=== PATIENT | female | born 1950 | race African-American/Black ===

== ENCOUNTER → 2017-07-20 | Outpatient (CLI) | payer OTHER | END | disposition home or self-care (01) | LOC: LAB 08:42 | DX: E78.2 Mixed hyperlipidemia (principal); D64.89 Other specified anemias; D68.8 Other specified coagulation defects ==

== ENCOUNTER 2017-09-28 11:49 | Outpatient (CLI) | payer OTHER ==
[~2017-09-28] VITALS: Ht 152.4 cm; Wt 52.2 kg
== END 2017-09-28 12:10 | disposition home or self-care (01) ==
LOC: OFIC 805 11:49
DX: H60.8X1 Other otitis externa, right ear (principal); H61.23 Impacted cerumen, bilateral; H93.11 Tinnitus, right ear

== ENCOUNTER 2018-02-12 13:35 | Outpatient (CLI) | payer OTHER | END 2018-02-12 13:52 | disposition home or self-care (01) | LOC: NUCLEAR 13:35 | DX: M81.0 Age-related osteoporosis without current pathological fracture (principal) ==

== ENCOUNTER 2018-02-15 08:48 | Outpatient (CLI) | payer OTHER | END 2018-02-15 09:00 | disposition home or self-care (01) | LOC: LAB 08:48 | DX: E55.9 Vitamin D deficiency, unspecified (principal); D68.8 Other specified coagulation defects; E11.65 Type 2 diabetes mellitus with hyperglycemia; D64.1 Secondary sideroblastic anemia due to disease; E03.8 Other specified hypothyroidism; E78.2 Mixed hyperlipidemia; N39.0 Urinary tract infection, site not specified ==

== ENCOUNTER 2018-06-02 07:50 | Outpatient (CLI) | payer OTHER | END 2018-06-02 07:56 | disposition home or self-care (01) | LOC: MAMO-SONO 07:50 | DX: Z12.31 Encounter for screening mammogram for malignant neoplasm of breast (principal); Z87.898 Personal history of other specified conditions; N64.89 Other specified disorders of breast ==

== ENCOUNTER 2018-06-02 09:17 | Outpatient (CLI) | payer OTHER | END 2018-06-02 09:28 | disposition home or self-care (01) | LOC: LAB 09:17 | DX: E11.65 Type 2 diabetes mellitus with hyperglycemia (principal); N39.0 Urinary tract infection, site not specified; Z12.11 Encounter for screening for malignant neoplasm of colon; D68.8 Other specified coagulation defects; D64.89 Other specified anemias; E03.8 Other specified hypothyroidism ==

== ENCOUNTER 2018-08-23 08:44 | Outpatient (CLI) | payer OTHER | END 2018-08-23 11:30 | disposition home or self-care (01) | LOC: LAB 08:44 | DX: E11.65 Type 2 diabetes mellitus with hyperglycemia (principal); E78.2 Mixed hyperlipidemia; D68.8 Other specified coagulation defects; D64.89 Other specified anemias; N39.0 Urinary tract infection, site not specified; E72.11 Homocystinuria ==

== ENCOUNTER 2018-08-24 08:41 | Outpatient (CLI) | payer OTHER | END 2018-08-24 08:59 | disposition home or self-care (01) | LOC: LAB 08:41 | DX: E11.65 Type 2 diabetes mellitus with hyperglycemia (principal); E78.2 Mixed hyperlipidemia; D68.8 Other specified coagulation defects; D64.89 Other specified anemias; N39.0 Urinary tract infection, site not specified; E72.11 Homocystinuria ==

== ENCOUNTER 2018-11-26 08:01 | Outpatient (CLI) | payer OTHER | END 2018-11-26 08:09 | disposition home or self-care (01) | LOC: LAB 08:01 | DX: E03.8 Other specified hypothyroidism (principal); E11.65 Type 2 diabetes mellitus with hyperglycemia; D64.89 Other specified anemias ==

== ENCOUNTER 2019-03-29 08:50 | Outpatient (CLI) | payer OTHER | END 2019-03-29 15:00 | disposition home or self-care (01) | LOC: LAB 08:50 | DX: D64.89 Other specified anemias (principal); E55.9 Vitamin D deficiency, unspecified; E11.65 Type 2 diabetes mellitus with hyperglycemia; N39.0 Urinary tract infection, site not specified; D68.8 Other specified coagulation defects; E03.8 Other specified hypothyroidism ==

== ENCOUNTER 2019-06-27 09:10 | Outpatient (CLI) | payer OTHER | END 2019-06-27 14:58 | disposition home or self-care (01) | LOC: MAMO-SONO 09:10 | DX: Z12.31 Encounter for screening mammogram for malignant neoplasm of breast (principal); Z87.898 Personal history of other specified conditions ==

== ENCOUNTER 2019-07-04 08:21 | Outpatient (CLI) | payer OTHER | END 2019-07-04 13:12 | disposition home or self-care (01) | LOC: LAB 08:21 | DX: E11.65 Type 2 diabetes mellitus with hyperglycemia (principal); D64.89 Other specified anemias; E78.2 Mixed hyperlipidemia; Z12.11 Encounter for screening for malignant neoplasm of colon; E03.8 Other specified hypothyroidism ==

== ENCOUNTER 2020-01-04 08:51 | Outpatient (CLI) | payer OTHER | END 2020-01-04 08:57 | disposition home or self-care (01) | LOC: LAB 08:51 | PROVIDERS: ATTEND Specialist | DX: E11.65 Type 2 diabetes mellitus with hyperglycemia (principal); E03.8 Other specified hypothyroidism; E78.2 Mixed hyperlipidemia; D64.89 Other specified anemias ==

== ENCOUNTER → 2020-03-06 08:26 | Outpatient (CLI) | payer OTHER | END | disposition home or self-care (01) | LOC: LAB 08:26 | PROVIDERS: ATTEND Internal Medicine Hematology & Oncology | DX: D50.8 Other iron deficiency anemias (principal); I10 Essential (primary) hypertension; D51.1 Vitamin B12 deficiency anemia due to selective vitamin B12 malabsorption with proteinuria; D51.0 Vitamin B12 deficiency anemia due to intrinsic factor deficiency; B20 Human immunodeficiency virus [HIV] disease; B17.8 Other specified acute viral hepatitis; Z11.59 Encounter for screening for other viral diseases; E06.3 Autoimmune thyroiditis; D72.818 Other decreased white blood cell count; D68.8 Other specified coagulation defects; Z01.812 Encounter for preprocedural laboratory examination; Z13.6 Encounter for screening for cardiovascular disorders; E78.00 Pure hypercholesterolemia, unspecified ==

== ENCOUNTER 2020-03-07 15:07 | Outpatient (CLI) | payer OTHER | END 2020-03-07 15:19 | disposition home or self-care (01) | LOC: SONOGRAMA 15:07 | PROVIDERS: ATTEND Internal Medicine Hematology & Oncology | DX: E06.0 Acute thyroiditis (principal); E03.8 Other specified hypothyroidism; D72.818 Other decreased white blood cell count; E04.2 Nontoxic multinodular goiter ==

== ENCOUNTER → 2020-04-09 08:30 | Outpatient (CLI) | payer OTHER | END | disposition home or self-care (01) | LOC: LAB 08:30 | PROVIDERS: ATTEND Specialist | DX: B20 Human immunodeficiency virus [HIV] disease (principal) ==

== ENCOUNTER 2020-06-12 09:36 | Outpatient (CLI) | payer OTHER | END 2020-06-12 09:47 | disposition home or self-care (01) | LOC: MRI 09:36 | PROVIDERS: ATTEND Neuromusculoskeletal Medicine & OMM | DX: G93.89 Other specified disorders of brain (principal); R41.3 Other amnesia | CPT/HCPCS: 70553; A9575 ==

== ENCOUNTER 2020-06-15 08:55 | Outpatient (CLI) | payer OTHER | END 2020-06-15 09:11 | disposition home or self-care (01) | LOC: LAB 08:55 | PROVIDERS: ATTEND Neuromusculoskeletal Medicine & OMM | DX: R41.89 Other symptoms and signs involving cognitive functions and awareness (principal); R41.3 Other amnesia; E03.8 Other specified hypothyroidism; F03.90 Unspecified dementia, unspecified severity, without behavioral disturbance, psychotic disturbance, mood disturbance, and anxiety; E78.1 Pure hyperglyceridemia; E78.00 Pure hypercholesterolemia, unspecified ==

== ENCOUNTER 2020-12-13 08:09 | Outpatient (CLI) | payer OTHER | END 2020-12-13 08:17 | disposition home or self-care (01) | LOC: MAMO-SONO 08:09 | PROVIDERS: ATTEND General Practice | DX: N64.59 Other signs and symptoms in breast (principal); Z87.898 Personal history of other specified conditions; Z12.31 Encounter for screening mammogram for malignant neoplasm of breast ==

== ENCOUNTER → 2020-12-13 09:45 | Outpatient (CLI) | payer OTHER | END | disposition home or self-care (01) | LOC: LAB 09:45 | PROVIDERS: ATTEND Specialist | DX: E11.21 Type 2 diabetes mellitus with diabetic nephropathy (principal) ==

== ENCOUNTER 2021-05-27 08:12 | Outpatient (CLI) | payer OTHER | END 2021-05-27 08:13 | disposition home or self-care (01) | LOC: LAB 08:12 | PROVIDERS: ATTEND Specialist | DX: E11.65 Type 2 diabetes mellitus with hyperglycemia (principal); K75.81 Nonalcoholic steatohepatitis (NASH); D64.89 Other specified anemias; D68.8 Other specified coagulation defects; J45.998 Other asthma ==

== ENCOUNTER 2021-09-02 13:03 | Outpatient (CLI) | payer OTHER | END 2021-09-02 13:04 | disposition home or self-care (01) | LOC: NUCLEAR 13:03 | PROVIDERS: ATTEND Specialist | DX: M81.0 Age-related osteoporosis without current pathological fracture (principal) ==

== ENCOUNTER 2021-11-27 08:37 | Outpatient (CLI) | payer OTHER | END 2021-11-27 08:54 | disposition home or self-care (01) | LOC: LAB 08:37 | PROVIDERS: ATTEND Specialist | DX: E11.21 Type 2 diabetes mellitus with diabetic nephropathy (principal); E78.2 Mixed hyperlipidemia; Z12.11 Encounter for screening for malignant neoplasm of colon; D64.9 Anemia, unspecified; K75.81 Nonalcoholic steatohepatitis (NASH); M77.8 Other enthesopathies, not elsewhere classified ==

== ENCOUNTER 2022-03-11 08:46 | Outpatient (CLI) | payer OTHER | END 2022-03-11 08:47 | disposition home or self-care (01) | LOC: LAB 08:46 | PROVIDERS: ATTEND Specialist | DX: E03.8 Other specified hypothyroidism (principal); M00.80 Arthritis due to other bacteria, unspecified joint; R07.89 Other chest pain; E11.21 Type 2 diabetes mellitus with diabetic nephropathy; E11.69 Type 2 diabetes mellitus with other specified complication; R19.5 Other fecal abnormalities; N39.9 Disorder of urinary system, unspecified; D64.89 Other specified anemias ==

== ENCOUNTER 2022-06-05 08:26 | Outpatient (CLI) | payer OTHER | END 2022-06-05 08:30 | disposition home or self-care (01) | LOC: LAB 08:26 | PROVIDERS: ATTEND Specialist | DX: M00.80 Arthritis due to other bacteria, unspecified joint (principal); E03.8 Other specified hypothyroidism; Z13.220 Encounter for screening for lipoid disorders; E11.21 Type 2 diabetes mellitus with diabetic nephropathy; D64.89 Other specified anemias; N39.9 Disorder of urinary system, unspecified; E11.69 Type 2 diabetes mellitus with other specified complication ==

== ENCOUNTER 2022-06-05 09:19 | Outpatient (CLI) | payer OTHER | END 2022-06-05 09:26 | disposition home or self-care (01) | LOC: TOM 09:19 | PROVIDERS: ATTEND Specialist | DX: I67.2 Cerebral atherosclerosis (principal); Z86.73 Personal history of transient ischemic attack (TIA), and cerebral infarction without residual deficits ==

== ENCOUNTER 2022-09-02 10:34 | Outpatient (CLI) | payer OTHER | END 2022-09-02 10:44 | disposition home or self-care (01) | LOC: LAB 10:34 | PROVIDERS: ATTEND Specialist | DX: E03.8 Other specified hypothyroidism (principal); D64.89 Other specified anemias; E11.21 Type 2 diabetes mellitus with diabetic nephropathy; Z13.220 Encounter for screening for lipoid disorders; N39.9 Disorder of urinary system, unspecified; E11.69 Type 2 diabetes mellitus with other specified complication ==

== ENCOUNTER → 2022-09-02 | Outpatient (CLI) | payer OTHER | END | disposition home or self-care (01) | LOC: MAMO-SONO 08:16 | PROVIDERS: ATTEND Specialist | DX: Z12.39 Encounter for other screening for malignant neoplasm of breast (principal); N60.39 Fibrosclerosis of unspecified breast ==

== ENCOUNTER 2022-10-15 08:39 | Outpatient (CLI) | payer OTHER | END 2022-10-15 08:40 | disposition home or self-care (01) | LOC: LAB 08:39 | PROVIDERS: ATTEND Specialist | DX: D68.59 Other primary thrombophilia (principal); E72.12 Methylenetetrahydrofolate reductase deficiency; Z15.89 Genetic susceptibility to other disease; E72.11 Homocystinuria; I82.90 Acute embolism and thrombosis of unspecified vein ==

== ENCOUNTER 2022-10-16 07:56 | Outpatient (CLI) | payer OTHER | END 2022-10-16 08:12 | disposition home or self-care (01) | LOC: MRI 07:56 | PROVIDERS: ATTEND Specialist | DX: I63.239 Cerebral infarction due to unspecified occlusion or stenosis of unspecified carotid artery (principal); H34.239 Retinal artery branch occlusion, unspecified eye | CPT/HCPCS: 70553; Q9965 ==

== ENCOUNTER 2022-10-30 08:45 | Outpatient (CLI) | payer OTHER | END 2022-10-30 08:46 | disposition home or self-care (01) | LOC: NUCLEAR 08:45 | PROVIDERS: ATTEND Specialist | DX: I65.29 Occlusion and stenosis of unspecified carotid artery (principal) ==

== ENCOUNTER 2022-12-01 08:28 | Outpatient (CLI) | payer OTHER | END 2022-12-01 08:29 | disposition home or self-care (01) | LOC: LAB 08:28 | PROVIDERS: ATTEND Specialist | DX: N39.9 Disorder of urinary system, unspecified (principal); M00.80 Arthritis due to other bacteria, unspecified joint; D64.89 Other specified anemias; R19.5 Other fecal abnormalities; Z13.220 Encounter for screening for lipoid disorders; E11.21 Type 2 diabetes mellitus with diabetic nephropathy; E11.69 Type 2 diabetes mellitus with other specified complication ==

== ENCOUNTER → 2023-03-02 09:56 | Outpatient (CLI) | payer OTHER ==
[2023-03-02 10:45] LABS: HEMATOCRIT 41.1 % (36.0-45.00); HEMOGLOBIN 13.3 g/dL (12.0-15.00); MEAN CORPUSCULAR HEMOGLOBIN 27.6 pg (27.00-32.0); MEAN CORPUSCULAR HGB CONC 32.4 g/dl (32.0-36.0); PLATELET COUNT 239 K/uL (150-450); RED BLOOD COUNT 4.83 M/uL (4.00-6.00); RED CELL DISTRIBUTION WIDTH 14.4 % (11.5-14.5)
[2023-03-02 10:47] LABS: PH,URINE 5.5 (5.0-8.0); URINE APPEARANCE Clear; URINE BILIRRUBIN Negative (NEGATIVE); URINE BLOOD Negative; URINE COLOR Yellow; URINE GLUCOSE Negative (NEGATIVE); URINE LEUKOCYTE Negative; URINE NITRATE Negative; URINE PROTEIN Negative (NEGATIVE); URINE UROBILINOGEN 0.2 E.U./dl
[2023-03-02 10:52] LABS: URINE EPITHELIAL CELLS 1.5 uL (0.0-38.8); URINE RBC 5.3 uL (0.0-20.8)
[2023-03-02 11:07] LABS: URINE WBC 1.6 uL (0.0-23.2)
[2023-03-02 11:32] LABS: ALBUMIN 3.6 gm/dL (3.4-5.0); ALKALINE PHOSPHATASE 67 U/L (50-136); ALT/SGPT 33 U/L (12-78); ANION GAP 6 (10.0-20.0); AST/SGOT 24 U/L (15-37); BILIRUBIN TOTAL 0.95 mg/dL (0.3-1.2); BLOOD UREA NITROGEN 12 mg/dL (7-18); BUN CREA RATIO 21 (7.0-25.0); CALCIUM 8.9 mg/dL (8.5-10.1); CARBON DIOXIDE 30 mEq/L (21-32); CHLORIDE 109 mmol/L (98-107); CHOL HDL RATIO 2.4 (0-5.0); CHOLESTEROL 158 mg/dL (0-200); CREATININE SERUM 0.57 mg/dL (0.55-1.02); GFR 104.86; GLOBULINA 3.2 G/DL (2.4-3.5); GLUCOSE FASTING 77 mg/dL (65-100); HDL 65 mg/dl (40-60); LDL 77 mg/dl (0-130); OSMOLALITY SERUM 280 MOSM/KG (275-295); POTASSIUM 4.03 mEq/L (3.5-5.1); SODIUM 141 mmol/L (136-145); TOTAL PROTEIN 6.8 gm/dL (6.4-8.2); TRIGLYCERIDES 78 mg/dL (0-150); TSH 0.812 uIU/mL (0.358-3.74); VLDL 15 (0-39)
[2023-03-02 11:33] LABS: C-REACTIVE PROTEIN < 0.29 MG/DL (0.00-0.29)
== END | disposition home or self-care (01) ==
LOC: LAB 09:56
PROVIDERS: ATTEND Specialist
DX: E11.21 Type 2 diabetes mellitus with diabetic nephropathy (principal); E03.8 Other specified hypothyroidism; E11.69 Type 2 diabetes mellitus with other specified complication; N39.9 Disorder of urinary system, unspecified; Z13.220 Encounter for screening for lipoid disorders; D64.89 Other specified anemias; M00.80 Arthritis due to other bacteria, unspecified joint

== ENCOUNTER 2023-06-09 09:05 | Outpatient (CLI) | payer OTHER ==
[2023-06-09 10:01] LABS: HEMOGLOBIN 12.5 g/dL (12.0-15.00); MEAN CORPUSCULAR HEMOGLOBIN 27.3 pg (27.00-32.0); MEAN CORPUSCULAR HGB CONC 32.9 g/dl (32.0-36.0); PLATELET COUNT 279 K/uL (150-450); RED BLOOD COUNT 4.58 M/uL (4.00-6.00); RED CELL DISTRIBUTION WIDTH 14.9 % (11.5-14.5)
[2023-06-09 10:01] LABS: PH,URINE 7.5 (5.0-8.0); URINE APPEARANCE Turbid; URINE BILIRRUBIN Negative (NEGATIVE); URINE BLOOD Negative; URINE COLOR Yellow; URINE GLUCOSE Negative (NEGATIVE); URINE LEUKOCYTE Negative; URINE NITRATE Negative; URINE PROTEIN Negative (NEGATIVE); URINE UROBILINOGEN 0.2 E.U./dl
[2023-06-09 10:06] LABS: URINE BACTERIA 28.9 uL (0.0-1933); URINE RBC 2.4 uL (0.0-20.8)
[2023-06-09 10:15] LABS: URINE EPITHELIAL CELLS 1.3 uL (0.0-38.8); URINE WBC 1.6 uL (0.0-23.2)
[2023-06-09 10:34] LABS: ALBUMIN 3.5 gm/dL (3.4-5.0); ALKALINE PHOSPHATASE 59 U/L (50-136); ALT/SGPT 28 U/L (12-78); ANION GAP 8 (10.0-20.0); AST/SGOT 19 U/L (15-37); BILIRUBIN TOTAL 1.25 mg/dL (0.3-1.2); BLOOD UREA NITROGEN 12 mg/dL (7-18); BUN CREA RATIO 21 (7.0-25.0); CALCIUM 9.1 mg/dL (8.5-10.1); CARBON DIOXIDE 29 mEq/L (21-32); CHLORIDE 108 mmol/L (98-107); CHOL HDL RATIO 2.6 (0-5.0); CHOLESTEROL 151 mg/dL (0-200); CREATININE SERUM 0.57 mg/dL (0.55-1.02); FREE TRIODOTIRONINE 2.41 pg/ml (2.18-3.98); GFR 104.56; GLOBULINA 3.1 G/DL (2.4-3.5); GLUCOSE FASTING 83 mg/dL (65-100); HDL 59 mg/dl (40-60); LDL 80 mg/dl (0-130); OSMOLALITY SERUM 280 MOSM/KG (275-295); POTASSIUM 4.01 mEq/L (3.5-5.1); SODIUM 141 mmol/L (136-145); T4 FREE 1.25 NG/ML (0.76-1.46); TOTAL PROTEIN 6.6 gm/dL (6.4-8.2); TRIGLYCERIDES 60 mg/dL (0-150); TSH 0.818 uIU/mL (0.358-3.74); VLDL 12 (0-39)
[2023-06-09 10:35] LABS: C-REACTIVE PROTEIN < 0.29 MG/DL (0.00-0.29)
== END 2023-06-09 09:06 | disposition home or self-care (01) ==
LOC: LAB 09:05
PROVIDERS: ATTEND Specialist
DX: E03.8 Other specified hypothyroidism (principal); E11.21 Type 2 diabetes mellitus with diabetic nephropathy; N25.81 Secondary hyperparathyroidism of renal origin; Z13.220 Encounter for screening for lipoid disorders

== ENCOUNTER 2023-07-01 09:59 | Outpatient (CLI) | payer OTHER | END 2023-07-01 10:03 | disposition home or self-care (01) | LOC: SONOGRAMA 09:59 | PROVIDERS: ATTEND Specialist | DX: M75.91 Shoulder lesion, unspecified, right shoulder (principal) ==

== ENCOUNTER → 2023-12-28 08:46 | Outpatient (CLI) | payer OTHER ==
[2023-12-28 09:32] LABS: HEMATOCRIT 37.8 % (36.0-45.00); HEMOGLOBIN 12.8 g/dL (12.0-15.00); MEAN CELL VOLUME 84.4 fL (80.00-100.00); MEAN CORPUSCULAR HEMOGLOBIN 28.5 pg (27.00-32.0); MEAN CORPUSCULAR HGB CONC 33.8 g/dl (32.0-36.0); PLATELET COUNT 221 K/uL (150-450); RED BLOOD COUNT 4.48 M/uL (4.00-6.00); RED CELL DISTRIBUTION WIDTH 14.5 % (11.5-14.5)
[2023-12-28 09:52] LABS: PH,URINE 7.5 (5.0-8.0); URINE APPEARANCE Clear; URINE BILIRRUBIN Negative (NEGATIVE); URINE BLOOD Negative; URINE COLOR Yellow; URINE GLUCOSE Negative (NEGATIVE); URINE KETONE Negative (NEGATIVE); URINE LEUKOCYTE Negative; URINE NITRATE Negative; URINE PROTEIN Negative (NEGATIVE); URINE UROBILINOGEN 0.2 E.U./dl
[2023-12-28 09:56] LABS: URINE RBC 5.6 uL (0.0-20.8); URINE WBC 2.9 uL (0.0-23.2)
[2023-12-28 10:00] LABS: URINE EPITHELIAL CELLS 0.7 uL (0.0-38.8)
[2023-12-28 10:28] LABS: ALBUMIN 3.5 gm/dL (3.4-5.0); BILIRUBIN TOTAL 1.41 mg/dL (0.3-1.2); BILIRUBIN,CONJUGATED 0.36 mg/dL (0.0-0.2); BILIRUBIN,UNCONJUGATED 1.05 mg/dL (0.0-0.6); CALCIUM 8.9 mg/dL (8.5-10.1); CHOL HDL RATIO 1.9 (0-5.0); CREATININE SERUM 0.6 mg/dL (0.55-1.02); GFR 98.55; POTASSIUM 4.01 mEq/L (3.5-5.1); TOTAL PROTEIN 6.3 gm/dL (6.4-8.2); TSH 0.633 uIU/mL (0.358-3.74)
== END | disposition home or self-care (01) ==
LOC: LAB 08:46
PROVIDERS: ATTEND Specialist
DX: E03.9 Hypothyroidism, unspecified (principal); N39.9 Disorder of urinary system, unspecified; E78.2 Mixed hyperlipidemia; D64.9 Anemia, unspecified; E11.65 Type 2 diabetes mellitus with hyperglycemia; K75.81 Nonalcoholic steatohepatitis (NASH); N39.0 Urinary tract infection, site not specified

== ENCOUNTER 2024-02-09 11:01 | Outpatient (CLI) | payer OTHER | END 2024-02-09 11:02 | disposition home or self-care (01) | LOC: NUCLEAR 11:01 | PROVIDERS: ATTEND Psychiatry & Neurology Clinical Neurophysiology | DX: G31.09 Other frontotemporal neurocognitive disorder (principal) | CPT/HCPCS: 78803; A9557 ==

== ENCOUNTER → 2024-05-02 08:35 | Outpatient (CLI) | payer OTHER ==
[2024-05-02 09:07] LABS: HEMATOCRIT 39.1 % (36.0-45.00); HEMOGLOBIN 13.3 g/dL (12.0-15.00); MEAN CELL VOLUME 84.6 fL (80.00-100.00); MEAN CORPUSCULAR HEMOGLOBIN 28.7 pg (27.00-32.0); MEAN CORPUSCULAR HGB CONC 33.9 g/dl (32.0-36.0); PLATELET COUNT 224 K/uL (150-450); RED BLOOD COUNT 4.63 M/uL (4.00-6.00); RED CELL DISTRIBUTION WIDTH 14.4 % (11.5-14.5)
[2024-05-02 10:15] LABS: ALBUMIN 3.6 gm/dL (3.4-5.0); BILIRUBIN TOTAL 1.23 mg/dL (0.3-1.2); BILIRUBIN,CONJUGATED 0.29 mg/dL (0.0-0.2); BILIRUBIN,UNCONJUGATED 0.94 mg/dL (0.0-0.6); CALCIUM 8.7 mg/dL (8.5-10.1); CHOL HDL RATIO 2.6 (0-5.0); CREATININE SERUM 0.61 mg/dL (0.55-1.02); GFR 96.68; POTASSIUM 3.98 mEq/L (3.5-5.1); TOTAL PROTEIN 6.7 gm/dL (6.4-8.2); TSH 0.621 uIU/mL (0.358-3.74)
[2024-05-02 11:55] LABS: PLATELET ESTIMATE NORMAL (NORMAL)
== END | disposition home or self-care (01) ==
LOC: LAB 08:35
PROVIDERS: ATTEND Specialist
DX: E03.9 Hypothyroidism, unspecified (principal); E11.21 Type 2 diabetes mellitus with diabetic nephropathy; E78.2 Mixed hyperlipidemia; D64.9 Anemia, unspecified; K75.81 Nonalcoholic steatohepatitis (NASH)

== ENCOUNTER 2024-08-01 10:46 | Outpatient (CLI) | payer OTHER ==
[2024-08-01 11:35] LABS: HEMATOCRIT 38.7 % (36.0-45.00); HEMOGLOBIN 12.6 g/dL (12.0-15.00); MEAN CELL VOLUME 85.9 fL (80.00-100.00); MEAN CORPUSCULAR HGB CONC 32.6 g/dl (32.0-36.0); PLATELET COUNT 211 K/uL (150-450); RED BLOOD COUNT 4.51 M/uL (4.00-6.00); RED CELL DISTRIBUTION WIDTH 14.2 % (11.5-14.5)
[2024-08-01 11:36] LABS: PH,URINE 7.5 (5.0-8.0); URINE APPEARANCE Cloudy; URINE BILIRRUBIN Negative (NEGATIVE); URINE BLOOD Negative; URINE COLOR Dark Yellow; URINE GLUCOSE Negative (NEGATIVE); URINE KETONE Negative (NEGATIVE); URINE LEUKOCYTE Negative; URINE NITRATE Negative; URINE PROTEIN Negative (NEGATIVE)
[2024-08-01 11:40] LABS: URINE BACTERIA 151.5 uL (0.0-1933); URINE RBC 5.4 uL (0.0-20.8)
[2024-08-01 11:41] LABS: URINE EPITHELIAL CELLS 0.3 uL (0.0-38.8); URINE WBC 1.1 uL (0.0-23.2)
[2024-08-01 11:49] LABS: CREATININE URINE RANDOM 77.9 MG/DL (30-125)
[2024-08-01 12:23] LABS: ALBUMIN 3.3 gm/dL (3.4-5.0); CHOL HDL RATIO 2.6 (0-5.0); CREATININE SERUM 0.62 mg/dL (0.55-1.02); FREE TRIODOTIRONINE 2.33 pg/ml (2.18-3.98); GFR 94.62; GLOBULINA 3.2 G/DL (2.4-3.5); POTASSIUM 3.97 mEq/L (3.5-5.1); T4 FREE 0.99 NG/ML (0.76-1.46); TOTAL PROTEIN 6.5 gm/dL (6.4-8.2); TSH 0.734 uIU/mL (0.358-3.74)
[2024-08-01 12:26] LABS: ob NEGATIVE (NEGATIVE)
[2024-08-03 08:15] LABS: PLATELET ESTIMATE NORMAL (NORMAL)
== END 2024-08-01 10:55 | disposition home or self-care (01) ==
LOC: LAB 10:46
PROVIDERS: ATTEND Specialist
DX: E03.9 Hypothyroidism, unspecified (principal); E11.21 Type 2 diabetes mellitus with diabetic nephropathy; N39.9 Disorder of urinary system, unspecified; E78.2 Mixed hyperlipidemia; E11.65 Type 2 diabetes mellitus with hyperglycemia; Z12.11 Encounter for screening for malignant neoplasm of colon; D64.9 Anemia, unspecified; E55.9 Vitamin D deficiency, unspecified; J45.998 Other asthma

== ENCOUNTER 2024-11-01 08:25 | Outpatient (CLI) | payer OTHER ==
[2024-11-01 09:13] LABS: BASO % 0.8 % (0.1-1.2); EOS # 0.09 (0.04-0.54); EOS % 2.3 % (0.7-7.0); HEMATOCRIT 39.1 % (34.1-44.9); HEMOGLOBIN 12.9 g/dL (11.2-15.7); LYMPH # 1.58 (1.18-3.74); LYMPH % 39.5 % (19.3-53.1); MEAN CORPUSCULAR HEMOGLOBIN 27.6 pg (25.6-32.2); MONO # 0.44 (0.24-0.82); NEUT # 1.83 (1.56-6.13); NEUT % 45.6 % (34.0-71.1); PLATELET COUNT 224 K/uL (163-369); RED BLOOD COUNT 4.67 M/uL (3.93-5.22); RED CELL DISTRIBUTION WIDTH 14.2 % (11.6-14.4)
[2024-11-01 09:28] LABS: URINE APPEARANCE Clear; URINE BILIRRUBIN Negative (NEGATIVE); URINE BLOOD Negative; URINE COLOR Yellow; URINE GLUCOSE Negative (NEGATIVE); URINE KETONE Negative (NEGATIVE); URINE LEUKOCYTE Negative; URINE NITRATE Negative; URINE PROTEIN Negative (NEGATIVE); URINE UROBILINOGEN 0.2 E.U./dl
[2024-11-01 09:32] LABS: URINE BACTERIA 13.4 uL (0.0-1933); URINE RBC 2.6 uL (0.0-20.8); URINE WBC 1.8 uL (0.0-23.2)
[2024-11-01 09:36] LABS: INR 1.02; PARTIAL THROMBOPLASTIN TIME 27.7 SECONDS (22.0-34.0); PROTHROMBIN TIME 11.1 SECONDS (9.0-11.5)
[2024-11-01 09:42] LABS: URINE CAST 0.14 uL (0.0-1.40); URINE EPITHELIAL CELLS 0.7 uL (0.0-38.8)
[2024-11-01 09:46] LABS: CALCIUM 9.3 mg/dL (8.5-10.1); CREATININE SERUM 0.74 mg/dL (0.55-1.02); GFR 77.14; POTASSIUM 3.94 mEq/L (3.5-5.1)
[2024-11-01 10:10] LABS: CHOL HDL RATIO 2.6 (0-5.0); TSH 0.734 uIU/mL (0.358-3.74)
== END 2024-11-01 08:30 | disposition home or self-care (01) ==
LOC: LAB 08:25
PROVIDERS: ATTEND Specialist
DX: E03.9 Hypothyroidism, unspecified (principal); E11.21 Type 2 diabetes mellitus with diabetic nephropathy; N39.9 Disorder of urinary system, unspecified; E78.2 Mixed hyperlipidemia; D64.9 Anemia, unspecified; D68.8 Other specified coagulation defects; N39.0 Urinary tract infection, site not specified

== ENCOUNTER 2025-02-28 08:53 | Outpatient (CLI) | payer OTHER ==
[2025-02-28 10:01] LABS: BASO % 1.1 % (0.1-1.2); EOS # 0.12 (0.04-0.54); EOS % 3.3 % (0.7-7.0); LYMPH # 1.63 (1.18-3.74); LYMPH % 44.8 % (19.3-53.1); MEAN PLATELET VOLUME 8.90 fl (9.4-12.4); MONO # 0.40 (0.24-0.82); MONO % 11.0 % (4.7-12.5); NEUT # 1.43 (1.56-6.13); NEUT % 39.3 % (34.0-71.1); RED CELL DISTRIBUTION WIDTH 13.7 % (11.6-14.4)
[2025-02-28 10:07] LABS: URINE APPEARANCE Clear; URINE BILIRRUBIN Negative (NEGATIVE); URINE BLOOD Negative; URINE COLOR Yellow; URINE GLUCOSE Negative (NEGATIVE); URINE KETONE Negative (NEGATIVE); URINE LEUKOCYTE Negative; URINE NITRATE Negative; URINE PROTEIN Negative (NEGATIVE); URINE UROBILINOGEN 0.2 E.U./dl
[2025-02-28 10:08] LABS: URINE BACTERIA 4.7 uL (0.0-1933); URINE RBC 3.2 uL (0.0-20.8)
[2025-02-28 10:25] LABS: URINE CAST 0.00 uL (0.0-1.40); URINE EPITHELIAL CELLS 0.4 uL (0.0-38.8); URINE WBC 0.4 uL (0.0-23.2)
[2025-02-28 11:24] LABS: FREE TRIODOTIRONINE 2.32 pg/ml (2.18-3.98); T4 FREE 1.11 NG/ML (0.76-1.46); TSH 0.782 uIU/mL (0.358-3.74)
== END 2025-02-28 08:58 | disposition home or self-care (01) ==
LOC: LAB 08:53
PROVIDERS: ATTEND Specialist
DX: E03.9 Hypothyroidism, unspecified (principal); N39.9 Disorder of urinary system, unspecified; D64.9 Anemia, unspecified; N39.0 Urinary tract infection, site not specified; E55.9 Vitamin D deficiency, unspecified